=== PATIENT | male | born 1955 | race Caucasian/White ===

== ENCOUNTER 2023-08-13 18:09 | Inpatient (IN) | payer OTHER, SELFPAY ==
[2023-08-13] VITALS (26 sets, daily range): BP systolic 111–148; BP diastolic 55–80; BMI 25.3
--- NOTE | 2023-08-13 11:33 | ED.PDOC.TRB ---
ED Provider Triage
-
Patient seen by provider in Triage?: Seen in Triage
67-year-old male with past medical history of cancer presenting to the ER for nausea and vomiting that started earlier this morning associated with left upper quadrant abdominal pain. Patient states the pain radiates to the right side of his
abdomen. States presently no nausea or vomiting but still endorses pain. He is otherwise well-appearing in no acute distress. Labs initiated. Patient declining any medication for nausea.
[2023-08-13 11:56] LABS: % Basophils 0.2 % (0-2); % Eosinophils 0.3 % (0-6); % Immature Granulocytes 0.5 % (0-0.5); % Lymphocytes 4.3 % (20.5-51.1); % Monocytes 10.4 % (1.7-9.3); % Neutrophils 84.3 % (42.2-75.2); Absolute Immature Granulocytes 0.1 10^3/uL (0-0.05); Absolute Lymphocytes 0.4 10^3/uL (1.2-3.4); Absolute Neutrophils 8.2 10^3/uL (1.4-6.5); Hematocrit 39.8 % (39.0-52.0); Hemoglobin 10.8 g/dL (13.0-18.0); Mean Corp Hgb Conc. 27.1 g/dL (33.0-37.0); Mean Corpuscular Hgb 23.1 pg (27.0-31.0); Mean Platelet Volume 8.5 fL (7.4-10.4); Nucleated Red Blood Cells % 0 % (-); Platelet Count 353 10^3/uL (130-400); Red Blood Cell Count 4.68 10^6/uL (4.70-6.10); Red Cell Dist. Width 19.5 % (11.5-14.5); White Blood Cell Count 9.8 10^3/uL (4.8-10.8)
[2023-08-13 12:14] LABS: ALT (SGPT) 22 U/L (0-50); AST (SGOT) 55 U/L (17-59); Albumin 2.9 g/dl (3.5-5.0); Alkaline Phosphatase 268 U/L (38-126); Blood Urea Nitrogen 50 mg/dl (9-20); Calcium 9.8 mg/dl (8.4-10.2); Carbon Dioxide 21 mmol/L (22-30); Chloride 105 mmol/L (98-107); Glucose 162 mg/dl (70-99); Lipase 23 U/L (23-300); Potassium 5.5 mmol/L (3.5-5.1); Sodium 138 mmol/L (135-145); Total Bilirubin 0.6 mg/dl (0.2-1.3); Total Protein 6.1 g/dl (6.3-8.2); eGFR 23.98
[2023-08-13 12:55] LABS: Anisocytosis 1+; Hypochromasia 1+; Normal RBC Morphology No
--- NOTE | 2023-08-13 13:31 | ED.GENMED ---
History of Present Illness
General
Chief Complaint: Abdominal Pain
Source: patient and spouse
Exam Limitations: none
Time Seen by Provider: 08/13/23 13:02
Nursing documentation reviewed up to this point in time: agreed with
Travel History
Have you had any contact with someone who has COVID-19?: No
Do you have any symptoms of coronavirus? Fever > 100 degrees, chills, cough, shortness of breath, sore throat, loss of taste or smell, muscle aches, or headache?: No
History of Present Illness
History of Present Illness:
67-year-old male presents emergency room complaining of left upper quadrant abdominal pain radiating to right upper quadrant ongoing for the past 3 days. He has a history of this type of pain in the past, but had no diagnosis. He has a history of
renal cell carcinoma, with a right nephrectomy. He follows with Dr. De León, [employer]. His last creatinine was 1.9 done at [facility]. This was in July 2023.
Past History
Past History
ED Past Medical History: HTN, Hypercholesterolemia and NIDDM
ED Past Surgical History: Urological (Right nephrectomy at [facility])
Social History
Tobacco: Non-smoker
Alcohol: Occasional
Personal:
Living: with family
Review of Systems
Review of Systems
Allergies reviewed?: Yes
All Other Systems: Not applicable
Constitutional: Reports no symptoms
EENT: Reports no symptoms
Respiratory: Reports no symptoms
Cardiac: Reports no symptoms
ABD/GI: Reports abdominal pain
: Reports no symptoms
Musculoskeletal: Reports no symptoms
Skin: Reports no symptoms
Neurological: Reports no symptoms
Endocrine: Reports no symptoms
Hematologic/Lymphatic: Reports no symptoms
Psychiatric: Reports no symptoms
Phy Exam
Physical Exam
Physical Exam:
Physical Exam
General: no apparent distress, not acutely ill
Neck: supple. no meningeal signs. normal posterior pharynx
Heart: s1/s2 regular rate and rhythm, no murmur. equal radial
pulses.
HEENT: Pupils equal round reactive to light, EOMI
Lungs: no acute respiratory distress. clear bilaterally
Abdomen: normal bowel sounds. mild LUQ abdominal tenderness, midline abdominal scar, right lower quadrant abdominal scar. no CVAT
Neuro: alert and oriented. no focal neurological deficits cranial nerves II through XII intact
Skin: no rash
Psychiatric: well kept. interactive and cooperative
Extremities: no edema. no calf tenderness. negative homans. good distal pulses
Course
Orders/Labs/Results
Orders:
Orders
08/13/23 11:44
Complete Blood Count/With Diff Urgent
Comprehensive Metabolic Panel Urgent
Lipase Urgent
08/13/23 13:21
CT Abdomen W/o Iv Contrast Urgent
Comment:
Reason For Exam: LUQ pain, history renal cancer
08/13/23 13:41
IV Insert/Care/Rem.- Treatment PRN
08/13/23 14:21
Urinalysis Reflex To Culture Urgent
Date Specimen was Collected: 08/13/23
Time Specimen was Collected: 13:57
Urine Creatinine Urgent
Date Specimen was Collected: 08/13/23
Time Specimen was Collected: 13:57
Urine Microscopic Reflex Cult Urgent
Urine Sodium Urgent
Date Specimen was Collected: 08/13/23
Time Specimen was Collected: 13:57
08/13/23 14:34
Dextrose 50%-Water [Dextrose 50% Syringe] 25 grams IV NOW STA
Insulin Human Regular [Novolin R] 10 units IV NOW STA
08/13/23 14:35
0.9% Sodium Chloride 250 ml [Nss] 250 ml IV BOLUS
08/13/23 14:45
Sterile Water For Inj [Sterile Water For Injection 1000 ml] 1,000 ml Sodium Bicarbonate 150 meq IV 125 mls/hr
08/13/23 Dinner
Regular
08/13/23 15:10
Add On- LAB Urgent
Tests Added?: Urine Creatinine, Urine Sodium
08/13/23 17:06
Admit/Transfer Patient As Directed
Co-Sign Provider:
Level of Care: Inpatient admission
Assign to:: Telemetry
Physician / Group: Brenna
Diagnosis: TOMAS
Reason for Telemetry: Chest Pain syndromes
Date to Stop Telemetry: 08/15/23
Time to Stop Telemetry: 11:00
Reason for Hospitalization: Above
Expected length of stay greater than two midnights?: Yes
ELOS- Estimated Length of Stay in days: 2
I certify the patient meets the requirements for IP care: Yes
08/13/23 17:08
Code Status As Directed
Resuscitation Status: Full Code
08/13/23 19:45
Acetaminophen [Tylenol] 650 mg PO Q6HPRN PRN
Rosuvastatin Calcium [Crestor] 20 mg PO QPM
08/13/23 19:45
Echo 2D MMode Color/Doppler Routine
Reason for Study: chest pain, pericardial effusion on CT
NEPHROLOGY CONSULT Routine
Consulting Provider: Kervin De León
Was physician already notified: Yes
US Abdomen Complete/Upper Routine
Comment:
Reason For Exam: Abdominal pain, assess for ascites
DX Deep Vein Thrombosis Video Routine
08/13/23 20:00
Heparin 5,000 units SC Q12
08/14/23 06:00
BMP [Basic Metabolic Panel] IN AM
CBC/With Diff [Complete Blood Count/With Diff] IN AM
08/14/23 08:00
Allopurinol [Zyloprim] 200 mg PO DAILY
Aspirin Chewable [Low Strength Aspirin] 81 mg PO DAILY
Levothyroxine [Synthroid] 50 mcg PO DAILY
08/15/23 11:00
DC Protocol for Telemetry ONCE
Abnormal Lab Results
08/13/23 08/13/23
11:44 14:21
RBC 4.68 L 10^6/uL
(4.70-6.10)
Hgb 10.8 L g/dL
(13.0-18.0)
MCH 23.1 L pg
(27.0-31.0)
MCHC 27.1 L g/dL
(33.0-37.0)
RDW 19.5 H %
(11.5-14.5)
Abs Immat Gran (auto) 0.1 H 10^3/uL
(0-0.05)
Absolute Neuts (auto) 8.2 H 10^3/uL
(1.4-6.5)
Absolute Lymphs (auto) 0.4 L 10^3/uL
(1.2-3.4)
Absolute Monos (auto) 1.0 H 10^3/uL
(0.1-0.6)
Neutrophils % 84.3 H %
(42.2-75.2)
Lymphocytes % 4.3 L %
(20.5-51.1)
Monocytes % 10.4 H %
(1.7-9.3)
Potassium 5.5 H mmol/L
(3.5-5.1)
Carbon Dioxide 21 L mmol/L
(22-30)
BUN 50 H mg/dl
(9-20)
Creatinine 2.8 H mg/dL
(0.7-1.3)
Glucose 162 H mg/dl
(70-99)
Alkaline Phosphatase 268 H U/L
(38-126)
Total Protein 6.1 L g/dl
(6.3-8.2)
Albumin 2.9 L g/dl
(3.5-5.0)
Urine Ketones Trace A
(Negative)
Ur Occult Blood Reflex Trace A
(Negative)
Urine Bilirubin 1+ A
(Negative)
Urine Albumin (Reflex) 2+ A
(Neg - Trace)
08/13/23 11:44
08/13/23 11:44
Vital Signs
Initial and Last Documented VS:
Initial Vital Signs
Temp Pulse Resp BP Pulse Ox
97.8 F 106 20 119/64 98
08/13/23 11:26 08/13/23 11:26 08/13/23 11:26 08/13/23 11:26 08/13/23 11:26
Last Documented Vital Signs
Temp Pulse Resp BP Pulse Ox
97.8 F 105 22 115/60 96
08/13/23 11:26 08/13/23 16:00 08/13/23 16:00 08/13/23 16:00 08/13/23 16:00
MDM/Problems Addressed
Differential Diagnosis Includes:
kidney stone, acute renal failure, hyperkalemia, UTI
MDM/Problems Addressed:
67 yo male with acute renal failure, hyperkalemia, LUQ pain.
*Radiology
Radiology exam reviewed: radiology read reviewed (ct abd moderate pericardial effusion, no kidney stone seen)
*Pulse Oximetry
Patient hypoxic: no
*EKG
Interpreted by ED Provider?: NA
*Snow Technician Interpretation
Rate: Snow Technician- N/A
*Critical Care Note
Total Time (30-74mins, 75-104mins- exclusive of procedures): Not Applicable
Patient Management
Discussion with other providers: Hospitalist and Post Secondary Professional (neprhology Dr. De León)
ED Attending Note
-
Portions of this chart may have been created with voice recognition software.� Occasional wrong word or��sound alike� substitutions may have occurred due to the inherent limitations of voice recognition software.
Discharge Plan
Departure
Patient Disposition: Admit
Date of Disposition: 08/13/23
Time of Disposition: 15:06
Admit to: Telemetry
Presentation/result/management discussed w/ accepting MD/DO: Hospitalist
Patient with high blood pressure during this ER visit?: No
Condition: Fair
Discharge Problem:
Acute renal failure, Renal cell carcinoma
Interventions
Interventions:
*Risk Screen - Suicide Last Done: 08/13/23 19:07
*ED COVID-19 Vaccine History Last Done: 08/13/23 19:07
QG-Zeekrn-Ojzmfpmsik Assessment Last Done: 08/13/23 14:28
--- NOTE | 2023-08-13 14:10 | W.CON.NEPH ---
Consultation
-
Date/Time Consultation Requested: August 13, 2023 12 noon
Date/Time Consultation Performed: August 13, 2023 2 PM
Requesting Provider: Dr Paredes
Performing Provider: Dr. De León
Reason for Consultation: Acute kidney injury
Medical History
-
Chief Complaint: Abdominal pain
History of Present Illness:
This is a 67-year-old gentleman who is well-known to me for chronic kidney disease stage IIIb with baseline creatinine 1.8 to 2. He has hypertension on a multidrug regimen. He has solitary left kidney after right nephrectomy for renal cell cancer.
Unfortunately this was found to be metastatic to liver. He is followed at [facility] immunotherapy which was recently discontinued. Supposed to transition to a new agent. Since discontinuing his immunosuppressive therapy, his blood pressure has
been running lower lately 100 systolic range. He stopped all of his blood pressure medications. 3 days ago he began developing abdominal pain in the upper quadrants. Because of the pain he had come to emergency room for evaluation. He was found
to have acute kidney injury with a creatinine of 2.8 with mild hyperkalemia. He was not overtly hypotensive in the emergency room.
Past Medical History
Gout, hypertension, renal cell carcinoma, right nephrectomy for cancer, metastatic cancer to liver, diabetes mellitus type 2, proteinuria, hyperlipidemia, right quadriceps tear, right adrenalectomy, left shoulder surgery, rotator cuff repair, left
thumb surgery, cholecystectomy, vena caval thrombectomy
Social History
Tobacco: Non-Smoker
Alcohol: None
Family History
Family History: Not Pertinent
Allergies / Home Medications
Allergy/AdvReac Type Severity Reaction Status Date / Time
No Known Allergies Allergy Unverified 08/13/23 11:30
�Medication �Instructions �Recorded �Confirmed �Type
Glipizide 2.5 mg PO DAILY 02/17/13 02/18/17 History
aspirin 325 mg tablet 650 mg PO DAILY 02/17/13 02/18/17 History
fish oil-dha-epa 1,200 mg-144 2 ea PO DAILY 02/17/13 02/18/17 History
mg-216 mg capsule
metformin 1,000 mg tablet 1,000 mg PO BID 02/17/13 02/18/17 History
(Glucophage)
rosuvastatin 20 mg tablet 20 mg PO QPM 02/17/13 02/18/17 History
lisinopril 20 1 ea PO DAILY 02/18/17 02/18/17 History
mg-hydrochlorothiazide 25 mg tablet
Review of Systems
-
Upper quadrant abdominal pain
All other systems: Negative unless noted
Physical Exam
Vital Signs
Vital Signs
Temp Pulse Resp BP Pulse Ox
97.8 F 106 20 119/64 98
08/13/23 11:26 08/13/23 11:26 08/13/23 11:26 08/13/23 11:26 08/13/23 11:26
Lab Results
WBC 9.8 10^3/uL (4.8-10.8) 08/13/23 11:44
RBC 4.68 10^6/uL (4.70-6.10) L 08/13/23 11:44
Hgb 10.8 g/dL (13.0-18.0) L 08/13/23 11:44
Hct 39.8 % (39.0-52.0) 08/13/23 11:44
Plt Count 353 10^3/uL (130-400) 08/13/23 11:44
Sodium 138 mmol/L (135-145) 08/13/23 11:44
Potassium 5.5 mmol/L (3.5-5.1) H 08/13/23 11:44
Chloride 105 mmol/L (98-107) 08/13/23 11:44
Carbon Dioxide 21 mmol/L (22-30) L 08/13/23 11:44
BUN 50 mg/dl (9-20) H 08/13/23 11:44
Creatinine 2.8 mg/dL (0.7-1.3) H 08/13/23 11:44
eGFR 23.98 08/13/23 11:44
Glucose 162 mg/dl (70-99) H 08/13/23 11:44
Calcium 9.8 mg/dl (8.4-10.2) 08/13/23 11:44
Albumin 2.9 g/dl (3.5-5.0) L 08/13/23 11:44
Physical Exam
Patient is awake alert oriented and in no distress. Mood and affect were pleasant, insight and judgment were good. Pupils are equal round and reactive to light, extraocular movements are intact, sclera were anicteric. Hearing was normal, ears and
nose are intact. Oropharynx was clear. Neck was supple with trachea midline and no thyromegaly. Heart was regular rate and rhythm without rubs. Lower extremities without edema. Lungs were clear to auscultation bilaterally and with normal
excursion. Abdomen was soft, nontender, with normal active bowel sounds, and no hepatosplenomegaly. Skin was without rash and with normal turgor.
Data Reviewed
-
CT Scan: Image Personally Visualized and interpreted (CT scan of the abdomen pelvis on August 13, 2023 by my reading shows no hydronephrosis)
Labs: Labs Reviewed by me (On August 13, 2023 WBC 9.8, hemoglobin 10.8, platelet 353, sodium 138, potassium 5.2, carbon dioxide 21, BUN 50, creatinine 2.8, AST 55, ALT 22)
Old Records: Reviewed (Laboratory values from July 01, 2023 shows sodium 141, potassium 4.9, bicarbonate 26, creatinine 2.11, BUN 39, urine protein creatinine ratio 3.0)
Assessment/Plan
-
Assessment:
Acute kidney injury
CKD 3B, 1.8
hypertension now hypotension relative
Abdominal pain
Metastatic renal cell carcinoma to liver
Solitary left kidney after right nephrectomy
Hyperkalemia
Metabolic acidosis
Anemia
Plan:
Follow BMP
IV fluids with bicarbonate
Treat potassium medically
Holding blood pressure medications
Holding Kerendia
Holding Urocit
Outpatient workup of proteinuria was to be done
await CT reading
[2023-08-13 14:49] LABS: Urine Albumin 2+ (Neg - Trace); Urine Bilirubin 1+ (Negative); Urine Character Clear (Clear); Urine Color Yellow; Urine Glucose Negative (Negative); Urine Ketone Trace (Negative); Urine Leukocyte Negative (Negative); Urine Nitrite Negative (Negative); Urine Occult Blood Trace (Negative); Urine Urobilinogen Negative (Neg - 1+)
[2023-08-13 15:18] LABS: Urine Red Blood Cell 0-2 /HPF (0-2); Urine Squamous Cell 0-2 /LPF (Few); Urine White Cell 0-2 /HPF (0-5)
[2023-08-13] MEDS: DEXTROSE 50% SYRINGE 25 GRAMS IV ×2 (15:41→22:38)
[2023-08-13] MEDS: SODIUM BICARBONATE 1150 MEQ IV (15:48)
[2023-08-13] MEDS: NSS 250 IV (15:49)
[2023-08-13] MEDS: NOVOLIN R 10 UNITS IV (15:50)
[2023-08-13 16:24] LABS: Urine Sodium 41 mmol/L (30-90)
--- NOTE | 2023-08-13 17:11 | HPS.HSE ---
Family Physician
-
Family Physician: Santana Monteiro
Chief Complaint
-
Abdominal pain
History of Present Illness
Patient is a 67 years old male with chronic kidney disease stage IIIb with baseline creatinine 1.2-2, renal cell carcinoma with history of right nephrectomy, currently on immunotherapy including everolimus and Lenvima. Patient has known metastatic
disease to the liver. He has been followed at [facility] and awaiting for transition to new systemic regimen. Patient reports low blood pressure since discontinuation of immunotherapy and running approximately 100 systolic in the range. He reports
stopping all his blood pressure medications 3 days prior to admission. He presents to the emergency room today because of the developing of mostly left sided/left upper quadrant abdominal pain that radiates to the right side. He denies any flank
pain. He denies any shortness of breath or fever.
Further evaluation in the emergency room is relevant for abnormal creatinine 2.8 and hyperkalemia.
On my assessment he remains hemodynamically stable nontoxic-appearing with no evidence of distress.
Medical History
Past Medical History
Past Medical History: Reports Other (Renal cell carcinoma solitary kidney, known hepatic metastatic disease. Chronic kidney disease stage IIIb goutHypertension proteinuria, dyslipidemia)
Past Surgical History: Reports Other (Nephrectomy)
Social History
Tobacco: Non-smoker
Alcohol: None
Drug: None
Personal:
Living: With Family
Family History
Family History: Not pertinent
Allergies / Home Medications
Allergies reflects when Allergies were last updated in [facility].
Home Medications with original date entered in [facility]
Allergy/Medication List:
Allergies
Allergy/AdvReac Type Severity Reaction Status Date / Time
No Known Allergies Allergy Unverified 08/13/23 11:30
Home Medications
rosuvastatin 20 mg tablet 20 mg PO QPM 02/17/13
acetaminophen 325 mg tablet 650 mg PO Q6HPRN PRN mild pain 08/13/23
allopurinol 100 mg tablet 200 mg PO DAILY 08/13/23
aspirin 81 mg chewable tablet 81 mg PO DAILY 08/13/23
everolimus (antineoplastic) 5 mg tablet 5 mg PO .DAILY ON HOLD 08/13/23
hydralazine 50 mg tablet 50 mg PO .DAILY ON HOLD 08/13/23
lenvatinib 12 mg/day (4 mg x 3) capsule (Lenvima) 12 mg PO .DAILY ON HOLD 08/13/23
levothyroxine 50 mcg tablet 50 mcg PO DAILY 08/13/23
nifedipine 30 mg tablet,extended release 30 mg PO .BID ON HOLD 08/13/23
potassium citrate 10 mEq (1,080 mg) tablet,extended release 10 meq PO TID 08/13/23
sodium bicarbonate 650 mg tablet 650 mg PO TID 08/13/23
Review of Systems
-
A 12 point ROS was completed and negative except as noted: Yes
Physical Exam
Vital Signs
Vital Signs
Temp Pulse Resp BP Pulse Ox
97.8 F 105 22 115/60 96
08/13/23 11:26 08/13/23 16:00 08/13/23 16:00 08/13/23 16:00 08/13/23 16:00
Physical Exam
General: Well Developed, Well Nourished and No Apparent Distress
HEENT: NormoCephalic, Moist mucous membranes and Atraumatic
Respiratory: Clear
Cardiac: S1/S2 and Regular Rhythm; No Murmur, Rub or JVD
GI: Soft, Non Tender, Normal Bowel Sounds and Distended; No Organomegaly
Rectal: Deferred by Provider
Musculoskeletal: No Clubbing, No Cyanosis and No Edema
Skin: No Rash
Neuro: Nonfocal/grossly intact
Laboratory Results
-
08/13/23 11:44
Laboratory Results
Total Bilirubin 0.6 mg/dl (0.2-1.3) 08/13/23 11:44
AST 55 U/L (17-59) 08/13/23 11:44
ALT 22 U/L (0-50) 08/13/23 11:44
Alkaline Phosphatase 268 U/L (38-126) H 08/13/23 11:44
Lipase 23 U/L (23-300) 08/13/23 11:44
Data Reviewed
-
CT Scan: Report Reviewed by me
Lab Data: Labs Reviewed by me
Impression/Plan
-
IMPRESSION:
Presentation with bilateral mostly left-sided abdominal pain.
Acute kidney injury on CKD stage IIIb.
Hyperkalemia
Metabolic acidosis.
Pericardial effusion and ascites by imaging.
Conditions prior to admission:
Renal cell carcinoma.
Status post right nephrectomy
Hepatic metastatic disease.
Essential hypertension on multiple medications
Dyslipidemia
Type 2 diabetes by history currently not on any oral hypoglycemics or insulin.
Gout.
Hypothyroidism
PLAN:
CT scan of the abdomen without contra
Moderate pericardial effusion. Progressed
Tiny left pleural effusion. New
Findings consistent with extensive hepatic metastasis. New
Hepatosplenomegaly. There
Mild upper abdominal ascites. New
Absent right kidney with surgical clips in the right renal fossa suggesting prior nephrectomy. New
Abdominal pain on presentation.
No evidence of acute urologic pathology by CT scan.
Noticed pericardial effusion and ascites.
? If pericardial effusion creates lower chest upper abdomen pain.
Hemodynamically stable with soft BP on presentation
Will check echocardiogram to assess pericardial effusion
Check ultrasound of the abdomen to assess ascites
Acute kidney injury on CKD stage IIIb.
Creatinine 2.8
Metabolic acidosis
Again no evidence for urinary retention clinically and by imaging.
Nephrology input appreciated
With hypotension we will hold antihypertensive regimen including hydralazine and nifedipine
Continue alkalinized IV fluids
Hyperkalemia temporized in the emergency room
Follow BMP
Renal cell carcinoma
Solitary kidney status post nephrectomy.
Known hepatic metastatic disease.
Currently on immunotherapy with Lenvima and everolimus.
Check serum cortisol
Levothyroxine on replacement
Full code.
DVT prophylaxis heparin.
[2023-08-13 20:08] LABS: Blood Urea Nitrogen 52 mg/dl (9-20); Calcium 9.3 mg/dl (8.4-10.2); Carbon Dioxide 24 mmol/L (22-30); Estimated Creatinine Clearance 29 ml/min; Glucose 201 mg/dl (70-99); eGFR 22.99
[2023-08-13 20:30] LABS: Chloride 102 mmol/L (98-107); Potassium 5.5 mmol/L (3.5-5.1); Sodium 135 mmol/L (135-145)
[2023-08-13 21:18] LABS: Cortisol, Random 31.3 ug/dl
[2023-08-13 21:40] LABS: Glucose - Point of Care 211 mg/dl (70-99)
[2023-08-13] MEDS: CRESTOR PO (21:46)
[2023-08-13] MEDS: HEPARIN 5000 UNITS SC (21:46)
[2023-08-13] MEDS: NOVOLIN R 0.100000000000000006 UNITS IV (22:35)
[2023-08-13] MEDS: LOKELMA 10 GRAM PO (22:35)
[2023-08-14 03:16] VITALS: BP 115/60
[2023-08-14] MEDS: SODIUM BICARBONATE 1150 MEQ IV (03:42)
[2023-08-14] MEDS: SYNTHROID 50 MCG PO (05:42)
[2023-08-14] MEDS: TYLENOL 650 MG PO ×2 (05:44→19:37)
[2023-08-14 06:58] VITALS: BP 121/60
[2023-08-14 07:03] LABS: % Basophils 0.3 % (0-2); % Eosinophils 0.2 % (0-6); % Immature Granulocytes 1.1 % (0-0.5); % Lymphocytes 5.4 % (20.5-51.1); % Monocytes 11.5 % (1.7-9.3); % Neutrophils 81.5 % (42.2-75.2); Absolute Immature Granulocytes 0.1 10^3/uL (0-0.05); Absolute Lymphocytes 0.5 10^3/uL (1.2-3.4); Absolute Monocytes 1.1 10^3/uL (0.1-0.6); Absolute Neutrophils 7.9 10^3/uL (1.4-6.5); Hematocrit 37.9 % (39.0-52.0); Hemoglobin 10.4 g/dL (13.0-18.0); Mean Corp Hgb Conc. 27.4 g/dL (33.0-37.0); Mean Corpuscular Hgb 23.4 pg (27.0-31.0); Mean Corpuscular Volume 85.4 fL (80.0-94.0); Nucleated Red Blood Cells % 0 % (-); Platelet Count 361 10^3/uL (130-400); Red Blood Cell Count 4.44 10^6/uL (4.70-6.10); Red Cell Dist. Width 19.6 % (11.5-14.5); White Blood Cell Count 9.7 10^3/uL (4.8-10.8)
[2023-08-14 07:30] LABS: Blood Urea Nitrogen 54 mg/dl (9-20); Calcium 9.3 mg/dl (8.4-10.2); Carbon Dioxide 27 mmol/L (22-30); Chloride 100 mmol/L (98-107); Estimated Creatinine Clearance 27 ml/min; Glucose 152 mg/dl (70-99); Potassium 5.2 mmol/L (3.5-5.1); Sodium 136 mmol/L (135-145); eGFR 21.22
[2023-08-14] MEDS: LOW STRENGTH ASPIRIN 81 MG PO (08:07)
[2023-08-14] MEDS: ZYLOPRIM 200 MG PO (08:07)
[2023-08-14] MEDS: HEPARIN 5000 UNITS SC ×2 (08:07→20:55)
[2023-08-14 08:15] LABS: Hepatitis C Antibody Negative (Negative)
[2023-08-14 13:36] LABS: ALT (SGPT) 18 U/L (0-50); AST (SGOT) 53 U/L (17-59); Albumin 2.7 g/dl (3.5-5.0); Alkaline Phosphatase 254 U/L (38-126); Direct Bilirubin 0.5 mg/dl (0.0-0.4); Total Bilirubin 0.6 mg/dl (0.2-1.3); Total Protein 5.7 g/dl (6.3-8.2)
--- NOTE | 2023-08-14 14:09 | W.PN.NEPH.PH ---
Today's Communication / Plan
-
change IVF to NS
low k diet
labs in am
Assessment/Plan
-
Assessment:
Acute kidney injury
CKD 3B, 1.8
hypertension now hypotension relative
Abdominal pain
Metastatic renal cell carcinoma to liver
Solitary left kidney after right nephrectomy
Hyperkalemia
Metabolic acidosis
Anemia
Plan:
TOMAS possible prerenal, Fena 0.4
UA relatively bland, no hydro
hyperkalemia improving
mild met acisosi is better-change to NS at 80cc/hr
suspect cr reaching peak
BP stable holding blood pressure medications
Holding Kerendia
Holding Urocit
Outpatient workup of proteinuria was to be done with Dr De León
d/w pt and primary
labs in am
-
-
Date of Service: August 14, 2023
CC / HPI / ROS
-
Chief Complaint:
TOMAS with CKD
History of Present Illness:
cr up at 3.1
reports non oliguric subjectively
BP stable , k 5.2
Review of Systems:
no cp or sob
abd pain improving
no dysuria
Labs
-
Labs:
WBC 9.7 10^3/uL (4.8-10.8) 08/14/23 05:50
RBC 4.44 10^6/uL (4.70-6.10) L 08/14/23 05:50
Hgb 10.4 g/dL (13.0-18.0) L 08/14/23 05:50
Hct 37.9 % (39.0-52.0) L 08/14/23 05:50
Plt Count 361 10^3/uL (130-400) 08/14/23 05:50
Sodium 136 mmol/L (135-145) 06/07/24 05:50
Potassium 5.2 mmol/L (3.5-5.1) H 08/14/23 05:50
Chloride 100 mmol/L (98-107) 08/14/23 05:50
Carbon Dioxide 27 mmol/L (22-30) 08/14/23 05:50
BUN 54 mg/dl (9-20) H 08/14/23 05:50
Creatinine 3.1 mg/dL (0.7-1.3) H 08/14/23 05:50
eGFR 21.22 08/14/23 05:50
Glucose 152 mg/dl (70-99) H 08/14/23 05:50
Calcium 9.3 mg/dl (8.4-10.2) 08/14/23 05:50
Albumin 2.7 g/dl (3.5-5.0) L 08/14/23 05:50
Physical Exam
-
Vital Signs:
Vital Signs
Temp Pulse Resp BP Pulse Ox
98.9 F 99 18 121/60 96
08/14/23 06:58 08/14/23 06:58 08/14/23 06:58 08/14/23 06:58 08/14/23 09:28
Cardiovascular:: Regular rate and rhythm
Respiratory:: Bilateral: CTA
Lung Excursion:: Normal
Abdomen:: Nontender and Soft
Extremity Edema:: None: Bilateral: (trace)
Schofield Catheter: No
[2023-08-14] MEDS: SODIUM BICARBONATE IV (14:41)
[2023-08-14] MEDS: NSS 1000 IV (14:43)
[2023-08-14 14:55] VITALS: BP 117/62
--- NOTE | 2023-08-14 15:43 | W.PN.HOSP.TC ---
Today's Communication/Plan
-
IV fluids.
Monitor renal function.
Lower extremity Doppler
Assessment / Plan
Assessment / Plan
IMPRESSION:
Presentation with bilateral mostly left-sided abdominal pain.
Acute kidney injury on CKD stage IIIb.
Hyperkalemia
Metabolic acidosis.
Pericardial effusion and ascites by imaging.
Conditions prior to admission:
Renal cell carcinoma.
Status post right nephrectomy
Hepatic metastatic disease.
Essential hypertension on multiple medications
Dyslipidemia
Type 2 diabetes by history currently not on any oral hypoglycemics or insulin.
Gout.
Hypothyroidism
PLAN:
Presentation with bilateral left greater than right abdominal pain.
CT scan of the abdomen without contrast with moderate pericardial effusion, minimal bilateral pleural effusions, extensive hepatic metastasis and ascites.
Follow-up ultrasound of the abdomen with minimal ascites.
Echocardiogram with no significant pericardial effusion, although with elevated pulmonary pressure as well as large RV
Patient reports improved abdominal pain today.
Given elevated RV size and pulmonary hypertension will check lower extremity Doppler for possible DVT. Given abnormal renal function unable to perform CTA
Acute kidney injury
CKD stage IIIb baseline creatinine 2.8 hopefully plateaued at 3.1 today.
Improved metabolic acidosis.
Noted with marginal BP likely causing bump in creatinine. Fena 0.4
Nephrology input appreciated
Initially on IV fluids with bicarbonate currently transition to normal saline.
Hyperkalemia temporized
Follow BMP.
Need to document to actual renal function prior to discharge
Renal cell carcinoma
Solitary kidney status post nephrectomy.
Known hepatic metastatic disease.
Currently on immunotherapy with Lenvima and everolimus.
Check serum cortisol
Levothyroxine on replacement
Full code.
DVT prophylaxis heparin.
Anticipated Discharge: 24 - 48 hours
Subjective/Interval History
-
Date of Service: August 14, 2023
Objective Data
-
Labs:
Laboratory Results
08/14/23
05:50
WBC 9.7
Hgb 10.4 L
Hct 37.9 L
Plt Count 361
Sodium 136
Potassium 5.2 H
Chloride 100
Carbon Dioxide 27
BUN 54 H
Creatinine 3.1 H
Glucose 152 H
Calcium 9.3
Total Bilirubin 0.6
AST 53
ALT 18
Alkaline Phosphatase 254 H
Vital Signs:
Vital Signs
Temp Pulse Resp BP Pulse Ox
97.9 F 99 18 117/62 96
08/14/23 14:55 08/14/23 14:55 08/14/23 14:55 08/14/23 14:55 08/14/23 14:55
I&O
08/13/23 08/14/23 08/15/23
06:59 06:59 06:59
Intake Total 1500 / 1500
Balance 1500 / 1500
Physical Exam
-
General: Well Developed and No Apparent Distress
HEENT: Normocephalic, Atraumatic and Moist Mucous Membranes
Respiratory: Clear to Auscultation
Cardiac: Regular Rhythm and S1/S2; Negative Murmur, Rub or Gallop
GI: Soft, Nontender, Nondistended and Normal Bowel Sounds; Negative Organomegaly
Rectal: Deferred by Provider
Musculoskeletal: No Clubbing, No Cyanosis and No Edema
Skin: Negative Rash
Neuro: Nonfocal/Grossly Intact
--- NOTE | 2023-08-14 16:01 | CM ---
Met with pt at bedside
Lives with in a 1 story home
Independent, driving
DME - none
SNF/HH - denies past hx
Has ride at d/c
PCP -Dr Yumiko Monteiro
Pharm - [facility]
Plan - anticipate home no needs
[2023-08-14] MEDS: CRESTOR 20 MG PO (17:10)
[2023-08-14 19:28] VITALS: BP 125/66
[2023-08-14 22:55] VITALS: BP 114/61
[2023-08-15 02:36] VITALS: BP 124/66
[2023-08-15] MEDS: TYLENOL 650 MG PO ×2 (03:35→22:24)
[2023-08-15] MEDS: SYNTHROID 50 MCG PO (05:35)
[2023-08-15] MEDS: NSS 1000 IV ×3 (05:35→21:12)
[2023-08-15 07:46] VITALS: BP 115/63
[2023-08-15 08:16] LABS: Blood Urea Nitrogen 64 mg/dl (9-20); Calcium 9.2 mg/dl (8.4-10.2); Carbon Dioxide 25 mmol/L (22-30); Chloride 97 mmol/L (98-107); Estimated Creatinine Clearance 24 ml/min; Glucose 162 mg/dl (70-99); Potassium 5.1 mmol/L (3.5-5.1); Sodium 136 mmol/L (135-145); eGFR 18.35
[2023-08-15] MEDS: ZYLOPRIM 200 MG PO (09:10)
[2023-08-15] MEDS: HEPARIN 5000 UNITS SC ×2 (09:11→20:31)
[2023-08-15] MEDS: LOW STRENGTH ASPIRIN 81 MG PO (09:11)
[2023-08-15 10:59] VITALS: BP 112/56
--- NOTE | 2023-08-15 12:19 | W.PN.HOSP.TC ---
Today's Communication/Plan
-
Monitor vital signs and see plan
Creatinine worse today, 3.5
Nephrology to see today
Assessment / Plan
Assessment / Plan
IMPRESSION:
Presentation with bilateral mostly left-sided abdominal pain.
Acute kidney injury on CKD stage IIIb.
Hyperkalemia
Metabolic acidosis.
Pericardial effusion and ascites by imaging.
Conditions prior to admission:
Renal cell carcinoma.
Status post right nephrectomy
Hepatic metastatic disease.
Essential hypertension on multiple medications
Dyslipidemia
Type 2 diabetes by history currently not on any oral hypoglycemics or insulin.
Gout.
Hypothyroidism
PLAN:
Presentation with bilateral left greater than right abdominal pain.
CT scan of the abdomen without contrast with moderate pericardial effusion, minimal bilateral pleural effusions, extensive hepatic metastasis and ascites.
Follow-up ultrasound of the abdomen with minimal ascites.
Echocardiogram with no significant pericardial effusion, although with elevated pulmonary pressure as well as large RV
Patient reports improved abdominal pain but does have hernia
Given elevated RV size and pulmonary hypertension will check lower extremity Doppler for possible DVT. Given abnormal renal function unable to perform CTA
venous doppler neg for DVT
Acute kidney injury
CKD stage IIIb baseline creatinine; Cr worse, 3.5 today
Improved metabolic acidosis.
Noted with marginal BP likely causing bump in creatinine. Fena 0.4
Nephrology input appreciated
Initially on IV fluids with bicarbonate currently transition to normal saline.
Hyperkalemia temporized
Follow BMP.
Need to document to actual renal function prior to discharge
Renal cell carcinoma
Solitary kidney status post nephrectomy.
Known hepatic metastatic disease.
Currently on immunotherapy with Lenvima and everolimus.
serum cortisol 31.3
Levothyroxine on replacement
Full code.
DVT prophylaxis heparin.
General: Well Developed and No Apparent Distress
HEENT: Normocephalic, Atraumatic and Moist Mucous Membranes
Respiratory: Clear to Auscultation
Cardiac: Regular Rhythm and S1/S2; Negative Murmur, Rub or Gallop
GI: Soft, Nontender, Nondistended and Normal Bowel Sounds; Negative Organomegaly
Rectal: Deferred by Provider
Musculoskeletal: No Clubbing, No Cyanosis and No Edema
Skin: Negative Rash
Neuro: Nonfocal/Grossly Intact
Anticipated Discharge: 24 - 48 hours
Subjective/Interval History
-
Date of Service: August 15, 2023
denies nausea
Objective Data
-
Labs:
Laboratory Results
08/15/23
05:58
Sodium 136
Potassium 5.1
Chloride 97 L
Carbon Dioxide 25
BUN 64 H
Creatinine 3.5 H
Glucose 162 H
Calcium 9.2
Vital Signs:
Vital Signs
Temp Pulse Resp BP Pulse Ox
97.9 F 99 16 112/56 99
08/15/23 10:59 08/15/23 10:59 08/15/23 10:59 08/15/23 10:59 08/15/23 10:59
I&O
08/14/23 08/15/23 08/16/23
06:59 06:59 06:59
Intake Total 1500 / 1500 1859
Balance 1500 / 1500 1859
--- NOTE | 2023-08-15 14:12 | W.PN.NEPH.PH ---
Today's Communication / Plan
-
see plan
Assessment/Plan
-
Assessment:
Acute kidney injury
CKD 3B, 1.8
hypertension now hypotension relative
Abdominal pain
Metastatic renal cell carcinoma to liver
Solitary left kidney after right nephrectomy
Hyperkalemia
Metabolic acidosis
Anemia
Plan:
TOMAS possible prerenal, Fena 0.4
UA relatively bland, no hydro
hyperkalemia resolved
cr cont to peak but subjectively non oliguric
no clear etiology of the ongoing rise of cr
recheck Fena today, follow bladder scan and measure UOP
lower IVF rate since mild LE edema
BP stable holding blood pressure medications
Holding Kerendia
Holding Urocit
Outpatient workup of proteinuria was to be done with Dr De León
d/w pt and nursing
labs in am
-
-
Date of Service: August 15, 2023
CC / HPI / ROS
-
Chief Complaint:
TOMAS with CKD
History of Present Illness:
cr up at 3.5
reports non oliguric subjectively
BP stable , k 5
Review of Systems:
no cp or sob
no abd pain
no dysuria
Labs
-
Labs:
WBC 9.7 10^3/uL (4.8-10.8) 08/14/23 05:50
RBC 4.44 10^6/uL (4.70-6.10) L 08/14/23 05:50
Hgb 10.4 g/dL (13.0-18.0) L 08/14/23 05:50
Hct 37.9 % (39.0-52.0) L 08/14/23 05:50
Plt Count 361 10^3/uL (130-400) 08/14/23 05:50
Sodium 136 mmol/L (135-145) 08/15/23 05:58
Potassium 5.1 mmol/L (3.5-5.1) 08/15/23 05:58
Chloride 97 mmol/L (98-107) L 08/15/23 05:58
Carbon Dioxide 25 mmol/L (22-30) 08/15/23 05:58
BUN 64 mg/dl (9-20) H 08/15/23 05:58
Creatinine 3.5 mg/dL (0.7-1.3) H 08/15/23 05:58
eGFR 18.35 08/15/23 05:58
Glucose 162 mg/dl (70-99) H 08/15/23 05:58
Calcium 9.2 mg/dl (8.4-10.2) 08/15/23 05:58
Albumin 2.7 g/dl (3.5-5.0) L 08/14/23 05:50
Physical Exam
-
Vital Signs:
Vital Signs
Temp Pulse Resp BP Pulse Ox
97.9 F 99 16 112/56 99
08/15/23 10:59 08/15/23 10:59 08/15/23 10:59 08/15/23 10:59 08/15/23 10:59
Cardiovascular:: Regular rate and rhythm
Respiratory:: Bilateral: CTA
Lung Excursion:: Normal
Abdomen:: Nontender and Soft
Extremity Edema:: +1: Bilateral: (trace)
Schofield Catheter: No
[2023-08-15 15:04] VITALS: BP 115/57
[2023-08-15] MEDS: CRESTOR 20 MG PO (16:41)
[2023-08-15 16:48] LABS: Urine Sodium 23 mmol/L (30-90)
[2023-08-15 16:58] LABS: Protein/creatinine Ratio 1.8; Urine Protein 356 mg/dl
[2023-08-15 23:00] VITALS: BP 113/58
[2023-08-16] MEDS: SYNTHROID 50 MCG PO (06:22)
[2023-08-16 07:00] VITALS: BP 119/58
[2023-08-16] MEDS: ZYLOPRIM 200 MG PO (07:26)
[2023-08-16] MEDS: HEPARIN 5000 UNITS SC ×2 (07:26→20:44)
[2023-08-16] MEDS: LOW STRENGTH ASPIRIN 81 MG PO (07:26)
[2023-08-16 07:52] LABS: Blood Urea Nitrogen 71 mg/dl (9-20); Calcium 8.9 mg/dl (8.4-10.2); Carbon Dioxide 27 mmol/L (22-30); Chloride 98 mmol/L (98-107); Estimated Creatinine Clearance 24 ml/min; Glucose 163 mg/dl (70-99); Potassium 5.2 mmol/L (3.5-5.1); Sodium 134 mmol/L (135-145); eGFR 18.35
[2023-08-16] MEDS: LOKELMA 10 GRAM PO (09:07)
[2023-08-16 09:19] VITALS: BMI 26.6
--- NOTE | 2023-08-16 11:46 | W.PN.HOSP.TC ---
Today's Communication/Plan
-
Monitor vitals
See plan
Monitor creatinine
Give Lokelma
Nephrology following
Assessment / Plan
Assessment / Plan
IMPRESSION:
Presentation with bilateral mostly left-sided abdominal pain.
Acute kidney injury on CKD stage IIIb.
Hyperkalemia
Metabolic acidosis.
Pericardial effusion and ascites by imaging.
Hyponatremia
Conditions prior to admission:
Renal cell carcinoma.
Status post right nephrectomy
Hepatic metastatic disease.
Essential hypertension on multiple medications
Dyslipidemia
Type 2 diabetes by history currently not on any oral hypoglycemics or insulin.
Gout.
Hypothyroidism
PLAN:
Presentation with bilateral left greater than right abdominal pain.
CT scan of the abdomen without contrast with moderate pericardial effusion, minimal bilateral pleural effusions, extensive hepatic metastasis and ascites.
Follow-up ultrasound of the abdomen with minimal ascites.
Echocardiogram with no significant pericardial effusion, although with elevated pulmonary pressure as well as large RV
Patient reports improved abdominal pain but does have hernia
Given elevated RV size and pulmonary hypertension will check lower extremity Doppler for possible DVT. Given abnormal renal function unable to perform CTA
venous doppler neg for DVT
Acute kidney injury
CKD stage IIIb baseline creatinine; Cr worse, 3.5 today
Potassium mildly high, give Lokelma
Improved metabolic acidosis.
Noted with marginal BP likely causing bump in creatinine. Fena 0.4
Nephrology input appreciated
Initially on IV fluids with bicarbonate currently transition to normal saline.
Hyperkalemia temporized
Follow BMP.
Need to document to actual renal function prior to discharge
Renal cell carcinoma
Solitary kidney status post nephrectomy.
Known hepatic metastatic disease.
Currently on immunotherapy with Lenvima and everolimus.
serum cortisol 31.3
Levothyroxine on replacement
Full code.
DVT prophylaxis heparin.
General: Well Developed and No Apparent Distress
HEENT: Normocephalic, Atraumatic and Moist Mucous Membranes
Respiratory: Clear to Auscultation
Cardiac: Regular Rhythm and S1/S2; Negative Murmur, Rub or Gallop
GI: Soft, Nontender, Nondistended and Normal Bowel Sounds
Musculoskeletal: + LE edema
Neuro: Nonfocal/Grossly Intact
Anticipated Discharge: 24 - 48 hours
Subjective/Interval History
-
Date of Service: August 16, 2023
denies pain
Objective Data
-
Labs:
Laboratory Results
08/16/23
06:19
Sodium 134 L
Potassium 5.2 H
Chloride 98
Carbon Dioxide 27
BUN 71 H
Creatinine 3.5 H
Glucose 163 H
Calcium 8.9
Vital Signs:
Vital Signs
Temp Pulse Resp BP Pulse Ox
97.4 F 101 18 119/58 98
08/16/23 07:00 08/16/23 07:00 08/16/23 07:00 08/16/23 07:00 08/16/23 07:46
I&O
08/15/23 08/16/23 08/17/23
06:59 06:59 06:59
Intake Total 1859 / 0 2400 / 2400
Output Total 670 / 670
Balance 1859 / 0 1730 / 1730
[2023-08-16] MEDS: NSS 1000 IV (13:34)
[2023-08-16 15:00] VITALS: BP 114/59
[2023-08-16] MEDS: CRESTOR 20 MG PO (17:04)
--- NOTE | 2023-08-16 17:29 | W.PN.NEPH.PH ---
Today's Communication / Plan
-
cotn IVF
follow labs
Assessment/Plan
-
Assessment:
Acute kidney injury
CKD 3B, 1.8
hypertension now hypotension relative
Abdominal pain
Metastatic renal cell carcinoma to liver
Solitary left kidney after right nephrectomy
Hyperkalemia
Metabolic acidosis
Anemia
Plan:
TOAMS possible prerenal, Fena still low
UA relatively bland, no hydro
hyperkalemia -low k diet
cr likely reached peak and non oliguric
follow bladder scan and measure UOP
cont IVF today and likely d/c in am if cr stable,
wt increasing but stable resp status
BP stable holding blood pressure medications
Holding Kerendia
Holding Urocit
Outpatient workup of proteinuria was to be done with Dr De León U CPR 1.8gm/gmof cr
d/w pt and
labs in am
He had Derm appointment on Thursday and he wants not to miss the appointment
-
-
Date of Service: August 16, 2023
CC / HPI / ROS
-
Chief Complaint:
TOMAS with CKD
History of Present Illness:
cr no change at 3.5
reports non oliguric subjectively
BP stable , k 5.2, na 134
Review of Systems:
no cp or sob
no abd pain
no dysuria
Labs
-
Labs:
WBC 9.7 10^3/uL (4.8-10.8) 08/14/23 05:50
RBC 4.44 10^6/uL (4.70-6.10) L 08/14/23 05:50
Hgb 10.4 g/dL (13.0-18.0) L 08/14/23 05:50
Hct 37.9 % (39.0-52.0) L 08/14/23 05:50
Plt Count 361 10^3/uL (130-400) 08/14/23 05:50
Sodium 134 mmol/L (135-145) L 08/16/23 06:19
Potassium 5.2 mmol/L (3.5-5.1) H 08/16/23 06:19
Chloride 98 mmol/L (98-107) 08/16/23 06:19
Carbon Dioxide 27 mmol/L (22-30) 08/16/23 06:19
BUN 71 mg/dl (9-20) H 08/16/23 06:19
Creatinine 3.5 mg/dL (0.7-1.3) H 08/16/23 06:19
eGFR 18.35 08/16/23 06:19
Glucose 163 mg/dl (70-99) H 08/16/23 06:19
Calcium 8.9 mg/dl (8.4-10.2) 08/16/23 06:19
Albumin 2.7 g/dl (3.5-5.0) L 08/14/23 05:50
Physical Exam
-
Vital Signs:
Vital Signs
Temp Pulse Resp BP Pulse Ox
97.7 F 98 18 114/59 96
08/16/23 15:00 08/16/23 15:00 08/16/23 15:00 08/16/23 15:00 08/16/23 15:00
Cardiovascular:: Regular rate and rhythm
Respiratory:: Bilateral: CTA
Lung Excursion:: Normal
Abdomen:: Nontender and Soft
Extremity Edema:: +1: Bilateral:
Schofield Catheter: No
[2023-08-16 23:00] VITALS: BP 113/58
[2023-08-16] MEDS: TYLENOL 650 MG PO (23:36)
[2023-08-17] MEDS: SYNTHROID 50 MCG PO (05:58)
[2023-08-17 06:00] VITALS: BMI 26.9
[2023-08-17] MEDS: NSS 1000 IV (06:00)
[2023-08-17 07:30] LABS: Blood Urea Nitrogen 74 mg/dl (9-20); Calcium 8.9 mg/dl (8.4-10.2); Carbon Dioxide 22 mmol/L (22-30); Chloride 99 mmol/L (98-107); Estimated Creatinine Clearance 25 ml/min; Glucose 188 mg/dl (70-99); Potassium 4.3 mmol/L (3.5-5.1); Sodium 132 mmol/L (135-145)
[2023-08-17 07:53] VITALS: BP 118/61
[2023-08-17] MEDS: HEPARIN 5000 UNITS SC ×2 (08:53→20:02)
[2023-08-17] MEDS: LOW STRENGTH ASPIRIN 81 MG PO (08:53)
[2023-08-17] MEDS: ZYLOPRIM 200 MG PO (08:53)
--- NOTE | 2023-08-17 09:11 | W.PN.HOSP.TC ---
Addendum entered and electronically signed by Mac Ceja MD 08/17/23 15:16:
Patient seen and examined
Discussed with resident
Discussed with nephrology
Impression/plan
Presentation with bilateral mostly upper quadrant abdominal pain resolved.
Acute kidney injury on CKD stage IIIb.
Solitary kidney.
Renal cell carcinoma currently on immunotherapy.
Abdominal pain resolved.
Additional workup with CT scan of the abdomen with no obstructive uropathy
Echocardiogram with preserved biventricular function and no pericardial effusion.
Lower extremity Doppler negative for DVT.
Minimal ascites on imaging.
Creatinine plateau
Observe off IV fluids.
Physical therapy assessment.
Original Note:
Today's Communication/Plan
-
- Will hold fluids and see how his renal function responds overnight.
- PT/OT eval in anticipation of a possible discharge tomorrow.
Assessment / Plan
Assessment / Plan
IMPRESSION:
Presentation with bilateral mostly left-sided abdominal pain.
Acute kidney injury on CKD stage IIIb.
Hyperkalemia
Metabolic acidosis.
Pericardial effusion and ascites by imaging.
Hyponatremia
Conditions prior to admission:
Renal cell carcinoma.
Status post right nephrectomy
Hepatic metastatic disease.
Essential hypertension on multiple medications
Dyslipidemia
Type 2 diabetes by history currently not on any oral hypoglycemics or insulin.
Gout.
Hypothyroidism
PLAN:
Presentation with bilateral left greater than right abdominal pain.
CT scan of the abdomen without contrast with moderate pericardial effusion, minimal bilateral pleural effusions, extensive hepatic metastasis and ascites.
Follow-up ultrasound of the abdomen with minimal ascites.
Echocardiogram with no significant pericardial effusion, although with elevated pulmonary pressure as well as large RV
Patient reports improved abdominal pain but does have hernia
Given elevated RV size and pulmonary hypertension will check lower extremity Doppler for possible DVT. Given abnormal renal function unable to perform CTA
venous doppler neg for DVT
Hold IV fluids today and monitor renal function.
Acute kidney injury
CKD stage IIIb baseline creatinine; Cr worse, 3.5 today
Potassium mildly high, give Lokelma
Improved metabolic acidosis.
Noted with marginal BP likely causing bump in creatinine. Fena 0.4
Nephrology input appreciated
Initially on IV fluids with bicarbonate currently transition to normal saline.
Hyperkalemia temporized
Follow BMP.
Need to document to actual renal function prior to discharge
Renal cell carcinoma
Solitary kidney status post nephrectomy.
Known hepatic metastatic disease.
Currently on immunotherapy with Lenvima and everolimus.
serum cortisol 31.3
Levothyroxine on replacement
Full code.
DVT prophylaxis heparin.
Anticipated Discharge: Today
Subjective/Interval History
-
Date of Service: August 17, 2023
Objective Data
-
Labs:
Laboratory Results
08/17/23
05:52
Sodium 132 L
Potassium 4.3
Chloride 99
Carbon Dioxide 22
BUN 74 H
Creatinine 3.4 H
Glucose 188 H
Calcium 8.9
Vital Signs:
Vital Signs
Temp Pulse Resp BP Pulse Ox
97.8 F 100 18 118/61 99
08/17/23 07:53 08/17/23 07:53 08/17/23 07:53 08/17/23 07:53 08/17/23 07:53
I&O
08/16/23 08/17/23 08/18/23
06:59 06:59 06:59
Intake Total 2400 / 2400 1320 / 1320
Output Total 670 / 670 360 / 360
Balance 1730 / 1730 960 / 960
Review of Systems
-
History Source: Patient
Constitutional: Reports Weight Gain
EENT: Reports No Symptoms Reported
Respiratory: Reports No Symptoms
Cardiac: Reports No Symptoms
Breast: Reports No Symptoms
Genitourinary: Reports No Symptoms
Musculoskeletal: Reports No Symptoms
Skin: Reports No Symptoms
Neuro: Reports No Symptoms
Endocrine: Reports No Symptoms
Hematologic / Lymphatic: Reports No Symptoms
Allergy / Immunology: Reports No Symptoms
Physical Exam
-
General: No Apparent Distress and Comfortable
HEENT: Normocephalic, Atraumatic, Moist Mucous Membranes and Anicteric
Respiratory: Clear to Auscultation and Non Labored Respirations
Cardiac: Regular Rhythm and S1/S2
GI: Soft, Nontender, Nondistended and Normal Bowel Sounds; Negative Organomegaly
Rectal: Deferred by Provider
Musculoskeletal: No Clubbing, No Cyanosis and No Edema
Skin: Warm, Dry and IV Access / Catheter Site
Neuro: Awake, Alert, Oriented and Nonfocal/Grossly Intact
Psych: Calm
--- NOTE | 2023-08-17 13:05 | W.PN.NEPH.PH ---
Today's Communication / Plan
-
No more IV fluids
Follow BMP
Assessment/Plan
-
Assessment:
Acute kidney injury
CKD 3B, 1.8
hypertension now hypotension relative
Abdominal pain
Metastatic renal cell carcinoma to liver
Solitary left kidney after right nephrectomy
Hyperkalemia
Metabolic acidosis
Anemia
Plan:
TOMAS possible prerenal, Fena still low
Hyponatremia worsening
UA relatively bland, no hydro
hyperkalemia -low k diet
Hopefully cr likely reached peak and non oliguric , creatinine 3.4 today
Urine output records only 340 mL
follow bladder scan and measure UOP
Will hold off further IV fluid as weights have significantly increased
Hemodynamically stable but still holding antihypertensives
Holding Kerendia due to hyperkalemia
Holding Urocit
Outpatient workup of proteinuria was to be done with Dr Genet Horner CPR 1.8gm/gmof cr
d/w pt
labs in am
He had Derm appointment on and he wants not to miss the appointment
-
-
Date of Service: August 17, 2023
CC / HPI / ROS
-
Chief Complaint:
TOMAS with CKD
History of Present Illness:
cr improved to 3.4
reports non oliguric subjectively
Hemodynamically more stable
Review of Systems:
no cp or sob
no abd pain
no dysuria
Labs
-
Labs:
WBC 9.7 10^3/uL (4.8-10.8) 08/14/23 05:50
RBC 4.44 10^6/uL (4.70-6.10) L 08/14/23 05:50
Hgb 10.4 g/dL (13.0-18.0) L 08/14/23 05:50
Hct 37.9 % (39.0-52.0) L 08/14/23 05:50
Plt Count 361 10^3/uL (130-400) 08/14/23 05:50
Sodium 132 mmol/L (135-145) L 08/17/23 05:52
Potassium 4.3 mmol/L (3.5-5.1) 08/17/23 05:52
Chloride 99 mmol/L (98-107) 08/17/23 05:52
Carbon Dioxide 22 mmol/L (22-30) 08/17/23 05:52
BUN 74 mg/dl (9-20) H 08/17/23 05:52
Creatinine 3.4 mg/dL (0.7-1.3) H 08/17/23 05:52
eGFR 19.00 08/17/23 05:52
Glucose 188 mg/dl (70-99) H 08/17/23 05:52
Calcium 8.9 mg/dl (8.4-10.2) 08/17/23 05:52
Albumin 2.7 g/dl (3.5-5.0) L 08/14/23 05:50
Physical Exam
-
Vital Signs:
Vital Signs
Temp Pulse Resp BP Pulse Ox
97.8 F 100 18 118/61 99
08/17/23 07:53 08/17/23 07:53 08/17/23 07:53 08/17/23 07:53 08/17/23 07:53
Cardiovascular:: Regular rate and rhythm
Respiratory:: Bilateral: Coarse
Lung Excursion:: Normal
Abdomen:: Nontender and Soft
Bowel Sounds:: Normal
Extremity Edema:: None: Bilateral:
Schofield Catheter: No
[2023-08-17 16:04] VITALS: BP 112/59
--- NOTE | 2023-08-17 16:17 | CM ---
Case management following for d/c planning
Chart reviewed
Pt with renal cell carcinoma
TOMAS - neph following
monitoring renal function
PT eval pending
Plan - anticipate home no needs
[2023-08-17] MEDS: CRESTOR 20 MG PO (17:10)
[2023-08-17] MEDS: TYLENOL 650 MG PO (22:36)
[2023-08-17 23:12] VITALS: BP 119/60
[2023-08-18] MEDS: SYNTHROID 50 MCG PO (05:51)
[2023-08-18 06:00] VITALS: BMI 27.2
[2023-08-18 06:46] LABS: Blood Urea Nitrogen 77 mg/dl (9-20); Calcium 8.6 mg/dl (8.4-10.2); Carbon Dioxide 22 mmol/L (22-30); Chloride 99 mmol/L (98-107); Estimated Creatinine Clearance 25 ml/min; Glucose 240 mg/dl (70-99); Potassium 3.9 mmol/L (3.5-5.1); Sodium 133 mmol/L (135-145); eGFR 19.69
[2023-08-18 07:44] VITALS: BP 105/55
[2023-08-18] MEDS: HEPARIN 5000 UNITS SC (08:43)
[2023-08-18] MEDS: ZYLOPRIM 200 MG PO (08:43)
[2023-08-18] MEDS: LOW STRENGTH ASPIRIN 81 MG PO (08:43)
[2023-08-18 09:23] VITALS: BP 108/51; PULSE 98
[2023-08-18 09:26] VITALS: BP 108/51; PULSE 98
--- NOTE | 2023-08-18 09:31 | PTOTSP ---
Pt is independent with functional mobility without need for any assistive device. No acute PT needs were identified. Will sign off.
--- NOTE | 2023-08-18 10:57 | W.PN.HOSP.TC ---
Addendum entered and electronically signed by Mac Ceja MD 08/18/23 16:19:
Patient seen and examined
Discussed with resident
Discussed with nephrology
Impression/plan:
Presentation with bilateral mostly left-sided abdominal pain resolved.
Acute kidney injury on CKD stage IIIb. Chronic metabolic acidosis. Renal function stabilized and plateau with now creatinine trending down off IV fluids. No evidence for obstructive process. This was most likely combination of relative
hypotension and recent immunotherapy. Plan is to discharge patient with nephrology follow-up. Will hold antihypertensives given soft BP. Continue oral bicarbonate.
Patient will follow-up with primary oncologist at [facility] for further options of renal carcinoma treatment
Original Note:
Today's Communication/Plan
-
- Anticipated discharge today.
Assessment / Plan
Assessment / Plan
IMPRESSION:
Presentation with bilateral mostly left-sided abdominal pain.
Acute kidney injury on CKD stage IIIb.
Hyperkalemia
Metabolic acidosis.
Pericardial effusion and ascites by imaging.
Hyponatremia
Conditions prior to admission:
Renal cell carcinoma.
Status post right nephrectomy
Hepatic metastatic disease.
Essential hypertension on multiple medications
Dyslipidemia
Type 2 diabetes by history currently not on any oral hypoglycemics or insulin.
Gout.
Hypothyroidism
PLAN:
Presentation with bilateral left greater than right abdominal pain.
CT scan of the abdomen without contrast with moderate pericardial effusion, minimal bilateral pleural effusions, extensive hepatic metastasis and ascites.
Follow-up ultrasound of the abdomen with minimal ascites.
Echocardiogram with no significant pericardial effusion, although with elevated pulmonary pressure as well as large RV
Patient reports improved abdominal pain but does have hernia
Given elevated RV size and pulmonary hypertension will check lower extremity Doppler for possible DVT. Given abnormal renal function unable to perform CTA
venous doppler neg for DVT
Renal function stable off IV fluids
Acute kidney injury
CKD stage IIIb baseline creatinine; Cr worse, 3.5 today
Potassium mildly high, give Lokelma
Improved metabolic acidosis.
Noted with marginal BP likely causing bump in creatinine. Fena 0.4
Nephrology input appreciated
Initially on IV fluids with bicarbonate currently transition to normal saline.
Hyperkalemia temporized
Follow BMP.
Cr stable off IV fluids.
Renal cell carcinoma
Solitary kidney status post nephrectomy.
Known hepatic metastatic disease.
Currently on immunotherapy with Lenvima and everolimus.
serum cortisol 31.3
Levothyroxine on replacement
Full code.
DVT prophylaxis heparin.
Anticipated Discharge: Today
Subjective/Interval History
-
Date of Service: August 18, 2023
Objective Data
-
Labs:
Laboratory Results
08/18/23
05:43
Sodium 133 L
Potassium 3.9
Chloride 99
Carbon Dioxide 22
BUN 77 H
Creatinine 3.3 H
Glucose 240 H
Calcium 8.6
Vital Signs:
Vital Signs
Temp Pulse Resp BP Pulse Ox
97 F 96 17 105/55 98
08/18/23 07:44 08/18/23 07:44 08/18/23 07:44 08/18/23 07:44 08/18/23 07:44
I&O
08/17/23 08/18/23 08/19/23
06:59 06:59 06:59
Intake Total 1320 / 1320 1320 / 1320
Output Total 360 / 360
Balance 960 / 960 1320 / 1320
Review of Systems
-
History Source: Patient
Constitutional: Reports Weight Gain
EENT: Reports No Symptoms Reported
Respiratory: Reports No Symptoms
Cardiac: Reports No Symptoms
Breast: Reports No Symptoms
Genitourinary: Reports No Symptoms
Musculoskeletal: Reports No Symptoms
Skin: Reports No Symptoms
Neuro: Reports No Symptoms
Endocrine: Reports No Symptoms
Hematologic / Lymphatic: Reports No Symptoms
Allergy / Immunology: Reports No Symptoms
Physical Exam
-
General: No Apparent Distress and Comfortable
HEENT: Normocephalic, Atraumatic, Moist Mucous Membranes and Anicteric
Respiratory: Clear to Auscultation and Non Labored Respirations
Cardiac: Regular Rhythm and S1/S2
GI: Soft, Nontender, Nondistended and Normal Bowel Sounds; Negative Organomegaly
Rectal: Deferred by Provider
Musculoskeletal: No Clubbing, No Cyanosis and No Edema
Skin: Warm, Dry and IV Access / Catheter Site
Neuro: Awake, Alert, Oriented and Nonfocal/Grossly Intact
Psych: Calm
[2023-08-18 11:29] VITALS: BP 105/56
--- NOTE | 2023-08-18 11:37 | W.PN.NEPH.PH ---
Today's Communication / Plan
-
Stable for discharge
Obtain BMP and send to Dr. De León this Thursday
Assessment/Plan
-
Assessment:
Acute kidney injury
CKD 3B, 1.8
hypertension now hypotension relative
Abdominal pain
Metastatic renal cell carcinoma to liver
Solitary left kidney after right nephrectomy
Hyperkalemia
Metabolic acidosis
Anemia
Plan:
Stable for discharge today
Follow-up BMP to be sent to Dr. De León later this week
TOMAS possible prerenal, Fena still low
creatinine slowly improving to 3.3, uop not recorded
Hyponatremia improved to 133
UA relatively bland, no hydro
hyperkalemia -low k diet, controlled
follow bladder scan and measure UOP
holding off further IV fluid as weights have significantly increased
Hemodynamically soft still holding antihypertensives
Holding Kerendia due to hyperkalemia
Holding Urocit
Outpatient workup of proteinuria was to be done with Dr De León U CPR 1.8gm/gmof cr
d/w pt
labs in am
He had Derm appointment on and he wants not to miss the appointment
-
-
Date of Service: August 18, 2023
CC / HPI / ROS
-
Chief Complaint:
TOMAS with CKD
History of Present Illness:
cr improved to 3.3
reports non oliguric subjectively
Hemodynamically more stable but still soft
Review of Systems:
no cp or sob
no abd pain
no dysuria
Labs
-
Labs:
WBC 9.7 10^3/uL (4.8-10.8) 08/14/23 05:50
RBC 4.44 10^6/uL (4.70-6.10) L 08/14/23 05:50
Hgb 10.4 g/dL (13.0-18.0) L 08/14/23 05:50
Hct 37.9 % (39.0-52.0) L 08/14/23 05:50
Plt Count 361 10^3/uL (130-400) 08/14/23 05:50
Sodium 133 mmol/L (135-145) L 08/18/23 05:43
Potassium 3.9 mmol/L (3.5-5.1) 08/18/23 05:43
Chloride 99 mmol/L (98-107) 08/18/23 05:43
Carbon Dioxide 22 mmol/L (22-30) 08/18/23 05:43
BUN 77 mg/dl (9-20) H 08/18/23 05:43
Creatinine 3.3 mg/dL (0.7-1.3) H 08/18/23 05:43
eGFR 19.69 08/18/23 05:43
Glucose 240 mg/dl (70-99) H 08/18/23 05:43
Calcium 8.6 mg/dl (8.4-10.2) 08/18/23 05:43
Albumin 2.7 g/dl (3.5-5.0) L 08/14/23 05:50
Physical Exam
-
Vital Signs:
Vital Signs
Temp Pulse Resp BP Pulse Ox
97 F 97 17 105/56 97
08/18/23 11:29 08/18/23 11:29 08/18/23 11:29 08/18/23 11:29 08/18/23 11:29
Cardiovascular:: Regular rate and rhythm
Respiratory:: Bilateral: CTA
Lung Excursion:: Normal
Abdomen:: Nontender and Soft
Bowel Sounds:: Normal
Extremity Edema:: +1: Bilateral:
Schofield Catheter: No
--- NOTE | 2023-08-18 12:48 | CM ---
Case management following for d/c planning
Pt reports home today
Has ride home
Plan - anticipate home no needs
--- NOTE | 2023-08-18 13:25 | W.DCSUMMARY ---
Documented by User: Simon Vinson MD, Resident 08/18/23 14:33
Discharge Summary
Discharge Data
Date of Admission: 08/13/23
Date of Discharge: 08/18/23
-
Pending Results: No
Hospital Course
Primary discharge diagnosis
- Metastatic renal cell carcinoma
Secondary discharge diagnoses
- Acute kidney injury on chronic kidney disease, stage IIIb
- Status post right nephrectomy
- Hyperkalemia
- Metabolic acidosis
- Pericardial effusion
- Ascites
- Dyslipidemia
- Essential hypertension
- Hypothyroidism
- Gout
Hospital course
Lucho Diaz, age 67, came to the emergency on 08-13-23 with left-sided upper abdominal pain radiating to the right. CT abdomen showed known extensive hepatic metastasis, hepatosplenomegaly mild pleural effusion and moderate pericardial effusion.
His presentation was notable for hyperkalemia and elevated creatinine levels, 2.8 on day 1; peaked and plateaued at 3.5. He was started on bicarbonate IV, subsequently transitioned to normal saline. Other work-up including an echocardiogram and BL
LE US were otherwise unremarkable. He remained hemodynamically stable throughout his hospital course, and his symptoms subsided. Creatinine remained stable and continued to down-trend off IV fluids.
His blood pressures have been low-normal since he came to the emergency, and have been so for the past few weeks. His blood pressure medications, which were stopped 3 days prior to his arrival to the emergency, were held during discharge - follow-up
with primary and nephrology in 1 week to re-evaluate. BMP in a week prior to the nephrology appointment. He has an outpatient appointment with Nico Lindquist to consider other antineoplastic options. Recommended to follow-up with primary regarding
up-trending glucose through the hospital stay. At the time of his discharge, his vitals were within normal limits (blood pressure low-normal) and he was feeling good. Review of systems and physical examination were unremarkable.
Discharge Plan
-
Patient Disposition: Home (Routine Discharge)
Discharge Diagnosis/Procedures: Metastatic renal cell carcinoma
Condition: Good
Diet: As tolerated
Activity: As tolerated
Driving Restrictions: As prior to admission
Blood Work: BMP and HbA1c in 1 week
Referrals:
Kervin De León MD [Active] -
Santana Monteiro MD [Family Provider] -
Prescriptions:
Continued
rosuvastatin 20 MG tablet
20 mg PO QPM
acetaminophen 325 mg Tablet
650 mg PO Q6HPRN PRN (Reason: mild pain)
allopurinol 100 mg Tablet
200 mg PO DAILY
sodium bicarbonate 650 mg Tablet
650 mg PO TID
levothyroxine 50 mcg Tablet
50 mcg PO DAILY
aspirin 81 mg Tablet,Chewable
81 mg PO DAILY
everolimus (antineoplastic) 5 mg Tablet
5 mg PO .DAILY ON HOLD
Lenvima 12 mg/day (4 mg x 3) Capsule
12 mg PO .DAILY ON HOLD
potassium citrate 10 mEq (1,080 mg) Tablet Extended Release
10 meq PO TID
Held
nifedipine 30 mg Tablet Extended Release
30 mg PO .BID ON HOLD
Hold Instructions: Until after follow-up with PCP and nephrology.
hydralazine 50 mg Tablet
50 mg PO .DAILY ON HOLD
Hold Instructions: Until after follow-up with PCP and nephrology.
Discharge Orders:
Discharge Patient (As Directed); Ordered 08/18/23
Ordered By: Simon Vinson
Discharge Date and Time
Discharge Date/Time: 08/18/23 15:12
Print Language: PAKISTANI

Documented by User: Mac Ceja MD 08/18/23 16:17
Discharge Summary
Discharge Data
Date of Admission: 08/13/23
Date of Discharge: 08/18/23
Discharge Plan
-
Patient Disposition: Home (Routine Discharge)
Discharge Diagnosis/Procedures: Metastatic renal cell carcinoma
Condition: Good
Diet: As tolerated
Activity: As tolerated
Driving Restrictions: As prior to admission
Blood Work: BMP and HbA1c in 1 week
Referrals:
Kervin De León MD [Active] -
Santana Monteiro MD [Family Provider] -
Prescriptions:
Continued
rosuvastatin 20 MG tablet
20 mg PO QPM
acetaminophen 325 mg Tablet
650 mg PO Q6HPRN PRN (Reason: mild pain)
allopurinol 100 mg Tablet
200 mg PO DAILY
sodium bicarbonate 650 mg Tablet
650 mg PO TID
levothyroxine 50 mcg Tablet
50 mcg PO DAILY
aspirin 81 mg Tablet,Chewable
81 mg PO DAILY
everolimus (antineoplastic) 5 mg Tablet
5 mg PO .DAILY ON HOLD
Lenvima 12 mg/day (4 mg x 3) Capsule
12 mg PO .DAILY ON HOLD
potassium citrate 10 mEq (1,080 mg) Tablet Extended Release
10 meq PO TID
Held
nifedipine 30 mg Tablet Extended Release
30 mg PO .BID ON HOLD
Hold Instructions: Until after follow-up with PCP and nephrology.
hydralazine 50 mg Tablet
50 mg PO .DAILY ON HOLD
Hold Instructions: Until after follow-up with PCP and nephrology.
Discharge Orders:
Discharge Patient (As Directed); Ordered 08/18/23
Ordered By: Simon Vinson
Discharge Date and Time
Discharge Date/Time: 08/18/23 15:12
Print Language: PAKISTANI
== END 2023-08-18 15:12 | disposition home or self-care (01) | DRG 683 ==
LOC: 3 WEST ACU 18:09
PROVIDERS: Internal Medicine; Physician Assistant Medical; Student in an Organized Health Care Education/Training Program; ADMITTING PHYSICIAN Internal Medicine; CONSULT PHYSICIAN Internal Medicine Medical Oncology; EMERGENCY PHYSICIAN Emergency Medicine; FAMILY PHYSICIAN Internal Medicine
DX: N17.9 Acute kidney failure, unspecified (principal); C64.1 Malignant neoplasm of right kidney, except renal pelvis; I31.39 Other pericardial effusion (noninflammatory); C78.7 Secondary malignant neoplasm of liver and intrahepatic bile duct; R18.8 Other ascites; E87.20 Acidosis, unspecified; E87.1 Hypo-osmolality and hyponatremia; E87.5 Hyperkalemia; N18.32 Chronic kidney disease, stage 3b; E11.22 Type 2 diabetes mellitus with diabetic chronic kidney disease; E78.00 Pure hypercholesterolemia, unspecified; I12.9 Hypertensive chronic kidney disease with stage 1 through stage 4 chronic kidney disease, or unspecified chronic kidney disease; M10.9 Gout, unspecified; D64.9 Anemia, unspecified; E03.9 Hypothyroidism, unspecified; Z90.5 Acquired absence of kidney; Z79.82 Long term (current) use of aspirin; Z79.890 Hormone replacement therapy; Z79.84 Long term (current) use of oral hypoglycemic drugs
CPT/HCPCS: 74150; 76700; 80048; 80053; 81003; 81015; 82248; 82533; 82570; 82962; 83690; 84156; 84300; 85025; 86803; 93306; 93970; 96374; 97162; 97166; 99285

== ENCOUNTER → 2023-11-05 11:00 | Outpatient (REF) | payer OTHER, SELFPAY | LOC: RAD 11:00 | PROVIDERS: ATTENDING PHYSICIAN Surgery Vascular Surgery; FAMILY PHYSICIAN Internal Medicine; OTHER PHYSICIAN Internal Medicine; REFERRING PHYSICIAN Specialist | DX: Z01.818 Encounter for other preprocedural examination (principal) | CPT/HCPCS: 93985 ==

== ENCOUNTER 2023-11-12 09:21 | Day surgery (SDC) | payer OTHER, SELFPAY ==
[2023-11-12] VITALS (14 sets, daily range): BP systolic 116–126; BP diastolic 64–76; BMI 28.7
[2023-11-12 10:17] LABS: Hematocrit 30.9 % (39.0-52.0); Hemoglobin 9.6 g/dL (13.0-18.0); Mean Corp Hgb Conc. 31.1 g/dL (33.0-37.0); Mean Corpuscular Hgb 31.2 pg (27.0-31.0); Mean Corpuscular Volume 100.3 fL (80.0-94.0); Mean Platelet Volume 9.2 fL (7.4-10.4); Platelet Count 164 10^3/uL (130-400); Red Blood Cell Count 3.08 10^6/uL (4.70-6.10); Red Cell Dist. Width 15.1 % (11.5-14.5); White Blood Cell Count 4.9 10^3/uL (4.8-10.8)
[2023-11-12] MEDS: BACTROBAN NASAL 1 GRAM NASAL (10:22)
[2023-11-12] MEDS: PERIDEX 0.12% ORAL RINSE 15 ML PO (10:23)
[2023-11-12 10:25] LABS: Blood Urea Nitrogen 50 mg/dl (9-20); Calcium 8.7 mg/dl (8.4-10.2); Carbon Dioxide 33 mmol/L (22-30); Chloride 93 mmol/L (98-107); Estimated Creatinine Clearance 34 ml/min; Glucose 195 mg/dl (70-99); Potassium 3.9 mmol/L (3.5-5.1); Sodium 137 mmol/L (135-145); eGFR 30.36
--- NOTE | 2023-11-12 10:30 | W.SUR.PREOP ---
Pre-Operative Surgical Note
-
I have examined this patient prior to the performance of the scheduled procedure.
The patient's condition is unchanged from the time of the current History and
Physical and the patient is able to undergo the scheduled procedure.
[2023-11-12 10:33] LABS: INR 1.22; PT 15.5 Sec (11.4-14.6)
--- NOTE | 2023-11-12 11:58 | W.SUR.POST ---
Surgical Immediate Post Op
Note
Pre Op Diagnosis: ESRD
Post Op Diagnosis: ESRD
Procedure Performed: LUE radiocephalic AV fistula creation
Primary Surgeon: Mukesh
Secondary Surgeons: Jayden PETERS
Anesthesia: LMA
Estimated Blood Loss: 10cc
Fluids: See anethesia flow sheet
Drains/Shunts: none
Specimens/Cultures: None
Doppler/Duplex/Angio (Y/N): Y
Complications: none
Operative Findings: +thrill
[2023-11-12 13:07] LABS: Glucose - Point of Care 168 mg/dl (70-99)
--- NOTE | 2023-11-12 14:59 | OR.RPT ---
Operative Report
Operative Report
PROCEDURE DATE: 11/12/2023
Preoperative diagnosis: End-stage renal disease on hemodialysis
Postoperative diagnosis: Same
Procedure: Left upper extremity radiocephalic arteriovenous fistula creation
Surgeon: Mukesh
E Commerce Manager: DECLAN Carpenter, required for all aspects of procedure including assistance with traction/countertraction, following a suture line, assistance with closure.
Complications: None
Anesthesia: General
Indications for procedure:
End-stage renal disease on hemodialysis. Required more permanent access. Currently dialyzed via tunneled dialysis catheter. Risk/benefits/alternatives of fistula creation were discussed with the patient and his family. They understood all wish
to proceed.
Description of procedure:
Patient was identified brought to the operating room placed on the table in supine position. After the adequate administration of anesthesia and perioperative antibiotics he was prepped and draped in the standard surgical fashion. A standard
preoperative timeout was undertaken and everybody was in agreement the plan. A longitudinal incision was made distal forearm/wrist on the radial aspect. This was carried through skin subcutaneous tissue.
A small lateral subcutaneous flap was raised and the cephalic vein was identified. It was carefully dissected away from surrounding structures take great care to avoid any injury to the structures. Any branches were ligated between silk ties and
then divided. It was a very reasonable sized vein. The vein was fully mobilized out of its bed. Once I mobilized the suitable segment, I deepened my dissection in the medial aspect of the incision through the fascial layer. I identified the
radial artery. I carefully dissected away from surrounding structures take great care to avoid any injury to structures. I passed a vessel loop around it proximally and distally. This was double looped but not yet tightened.
Next, I ligated the cephalic vein distally in my field with a silk tie and a clip. I then transected it. I distended the vein under heparinized saline. It distended very well. Given the large size and good distention, I did not feel there is any
need to pass dilators as it was clearly over 3 mm in size. I marked the anterior surface of the vein under distention to avoid any kinking or twisting.
Next, I gave the patient 3000 units of intravenous heparin. I tightened my double looped Vesseloops on the artery proximally and distally. I made an arteriotomy with a Eddy blade and extended using a micro Marinelli scissor. I then spatulated the
cephalic vein and sewed an end to side anastomosis using a running 7-0 Prolene suture. It was a small artery, and a somewhat larger patulous vein. I backbled the artery and then completed and tied down my suture line. Next I released my proximal
vessel loop. Finally I released my outflow vessel loop. There was a reasonable thrill in the fistula. There was a good radial pulse at the wrist more distally. At this point I was very satisfied. I irrigated. I achieved and confirmed full
hemostasis. I then closed in layers using 3-0 Vicryl deep dermal layer followed by 4 Monocryl subcuticular stitch. Dermabond was applied.
== END 2023-11-12 14:45 | disposition home or self-care (01) ==
LOC: CATH 09:21
PROVIDERS: ATTENDING PHYSICIAN Surgery Vascular Surgery; FAMILY PHYSICIAN Internal Medicine; OTHER PHYSICIAN Specialist
DX: I12.0 Hypertensive chronic kidney disease with stage 5 chronic kidney disease or end stage renal disease (principal); E11.22 Type 2 diabetes mellitus with diabetic chronic kidney disease; N18.6 End stage renal disease; Z99.2 Dependence on renal dialysis; I45.10 Unspecified right bundle-branch block; E78.5 Hyperlipidemia, unspecified; Z79.82 Long term (current) use of aspirin
CPT/HCPCS: 36821; 80048; 82962; 85027; 85610; 85730; 86850; 86900; 86901; 93005

== ENCOUNTER → 2023-12-17 09:46 | Outpatient (REF) | payer OTHER, SELFPAY | LOC: RAD 09:46 | PROVIDERS: ATTENDING PHYSICIAN Physician Assistant; FAMILY PHYSICIAN Internal Medicine; REFERRING PHYSICIAN Specialist | DX: I77.0 Arteriovenous fistula, acquired (principal) | CPT/HCPCS: 93990 ==

== ENCOUNTER 2024-01-21 09:09 | Day surgery (SDC) | payer OTHER, SELFPAY ==
[2024-01-21] VITALS (12 sets, daily range): BP systolic 107–148; BP diastolic 73–93
[2024-01-21 09:30] LABS: Hematocrit 39.1 % (39.0-52.0); Hemoglobin 13.3 g/dL (13.0-18.0); Mean Corpuscular Hgb 32.7 pg (27.0-31.0); Mean Corpuscular Volume 96.1 fL (80.0-94.0); Mean Platelet Volume 9.6 fL (7.4-10.4); Platelet Count 123 10^3/uL (130-400); Red Blood Cell Count 4.07 10^6/uL (4.70-6.10); Red Cell Dist. Width 18.6 % (11.5-14.5); White Blood Cell Count 3.6 10^3/uL (4.8-10.8)
[2024-01-21 09:42] LABS: INR 1.06; PT 14.4 Sec (11.4-14.6)
[2024-01-21 10:06] LABS: Blood Urea Nitrogen 67 mg/dl (9-20); Carbon Dioxide 28 mmol/L (22-30); Chloride 98 mmol/L (98-107); Glucose 212 mg/dl (70-99); Potassium 3.5 mmol/L (3.5-5.1); Sodium 139 mmol/L (135-145); eGFR 28.67
[2024-01-21] MEDS: NOVOLOG vial 1 UNITS SC (10:36)
[2024-01-21] MEDS: NSS 500 IV (10:38)
--- NOTE | 2024-01-21 13:10 | W.SUR.POST ---
Surgical Immediate Post Op
Note
Pre Op Diagnosis: ESRD
Post Op Diagnosis: ESRD
Procedure Performed: Left upper extremity fistulogram with balloon angioplasty to preanastomotic vein
Primary Surgeon: Brian Mayorga MD
Secondary Surgeons: N/A
Anesthesia: MAC
Estimated Blood Loss: 2 ml
Fluids: See anesthesia flow sheet
Drains/Shunts: N/A
Specimens/Cultures: N/A
Doppler/Duplex/Angio (Y/N): Y
Complications: none
Operative Findings: +thrill post procedure
--- NOTE | 2024-01-21 13:53 | OR.RPT ---
Operative Report
Operative Report
PROCEDURE DATE: 01/21/2024
Preoperative diagnosis: End-stage renal disease on hemodialysis. Status post left upper extremity radiocephalic arteriovenous fistula creation with difficulty accessing fistula.
Postoperative diagnosis: Same
Procedure:
1. Duplex assisted cannulation of left forearm cephalic vein in a peripheral facing direction.
2. Left upper extremity fistulogram and central venogram.
3. Balloon angioplasty of perianastomotic stenosis with 3 mm and 3.5 mm angioplasty balloon.
4. Supervision and interpretation.
Surgeon: Mukesh
Manager Recruiting: None
Complications: None
Anesthesia: Local, sedation
Fluoroscopy:
4.8 min
5 mGy
1.79 Gy.cm2
Indications for procedure:
End-stage renal disease on hemodialysis. Left radiocephalic arteriovenous fistula created. Limited ability to access the fistula and difficulty maintaining dialysis. Potential perianastomotic stenosis noted on ultrasound.
Risk/benefits/alternatives of left upper extremity fistulogram fully discussed. Patient understood all wished to proceed.
Description of procedure:
Patient was identified, brought to the operating room. Placed on the table in the supine position. After the adequate administration of anesthesia, the patient was prepped and draped in the standard surgical fashion. A standard preoperative
timeout was undertaken and everybody was in agreement with the plan.
The left upper extremity forearm cephalic vein was punctured under direct duplex ultrasound guidance and a peripheral facing direction in the proximal forearm. This was done with a micropuncture kit. I then advanced a 5 [place] sheath over a 0.035
inch wire. Fistulogram demonstrated patent fistula in the vicinity of this sheath. There was some branching vein noted. However the main cephalic outflow vein appeared reasonable size. However I could not get contrast to reflux towards
anastomosis. I therefore then used a floppy angled hydrophilic wire and a glide catheter and was able to pass my wire and then catheter down towards the anastomotic region. I then was able to cannulate the radial artery just proximal to the
anastomosis and then advance my glide catheter across anastomosis into the proximal radial artery. Angiogram was performed. This demonstrated actually slightly aberrant anatomy. Distal radial artery appeared to be the radial artery, however it
appeared to branch off the main radial artery slightly more proximally when I did my fistulogram. Both this branch and the other branch filled the hand, but the other branch filled more of the palmar arch. This was slightly atypical bifurcation.
The artery which was anastomosed to the vein appeared to be a slightly smaller branch. And there appeared to be stenosis/disease at the very distal aspect of the artery and in the perianastomotic area. Therefore, I felt that it was worthwhile to
angioplasty that in order to enhance perfusion through the fistula. I therefore then exchanged for a 0.014 inch wire. I then used a 3 mm angioplasty balloon to angioplasty that stenotic area. Completion angiogram demonstrated good result, but
still slight residual stenosis. I therefore then used a 3.5 mm balloon to angioplasty the area again. Completion angiogram now demonstrated good result. At this point I was very satisfied. Remainder of the fistulogram and central venogram was
performed identifying no other stenoses. At this point I satisfied. The wires and catheters were withdrawn. A 4-0 Monocryl pursestring stitch was placed around the sheath entry site, and was tied down as the sheath was withdrawn. Manual pressure
was also applied to the puncture site. Hemostasis was fully achieved. The patient tolerated procedure well. He had a good thrill in the fistula upon completion.
== END 2024-01-21 15:11 | disposition home or self-care (01) ==
LOC: CATH 09:09
PROVIDERS: ATTENDING PHYSICIAN Surgery Vascular Surgery; FAMILY PHYSICIAN Internal Medicine
DX: T82.858D Stenosis of other vascular prosthetic devices, implants and grafts, subsequent encounter (principal); Y83.2 Surgical operation with anastomosis, bypass or graft as the cause of abnormal reaction of the patient, or of later complication, without mention of misadventure at the time of the procedure; Z79.82 Long term (current) use of aspirin; I12.0 Hypertensive chronic kidney disease with stage 5 chronic kidney disease or end stage renal disease; E11.22 Type 2 diabetes mellitus with diabetic chronic kidney disease; N18.6 End stage renal disease; Z99.2 Dependence on renal dialysis; Z79.85 Long-term (current) use of injectable non-insulin antidiabetic drugs
CPT/HCPCS: 36902; 80048; 85027; 85610; 85730; 86850; 86900; 86901; C1725; C1769; C1894; Q9967

== ENCOUNTER → 2024-03-29 09:23 | Outpatient (REF) | payer OTHER, SELFPAY ==
[2024-03-29 09:45] VITALS: BP 128/78; BP_SYST 82
== END ==
LOC: RADI 09:23
PROVIDERS: ATTENDING PHYSICIAN Internal Medicine
DX: Z49.01 Encounter for fitting and adjustment of extracorporeal dialysis catheter (principal); N18.6 End stage renal disease
CPT/HCPCS: 36589

== ENCOUNTER → 2024-08-09 06:49 | Outpatient (REF) | payer OTHER, SELFPAY | LOC: RAD 06:49 | PROVIDERS: ATTENDING PHYSICIAN Surgery Vascular Surgery; FAMILY PHYSICIAN Internal Medicine | DX: I77.0 Arteriovenous fistula, acquired (principal) | CPT/HCPCS: 93990 ==

== ENCOUNTER 2024-08-18 10:45 | Day surgery (SDC) | payer OTHER, SELFPAY ==
[2024-08-18] VITALS (7 sets, daily range): BP systolic 86–127; BP diastolic 64–79; BMI 24.7
[2024-08-18] MEDS: NSS 500 IV (11:00)
[2024-08-18 11:22] LABS: Glucose - Point of Care 105 mg/dl (70-99)
[2024-08-18 11:24] LABS: Hematocrit 37.2 % (39.0-52.0); Hemoglobin 11.7 g/dL (13.0-18.0); Mean Corp Hgb Conc. 31.5 g/dL (33.0-37.0); Mean Corpuscular Hgb 35.8 pg (27.0-31.0); Mean Corpuscular Volume 113.8 fL (80.0-94.0); Mean Platelet Volume 8.9 fL (7.4-10.4); Platelet Count 165 10^3/uL (130-400); Red Blood Cell Count 3.27 10^6/uL (4.70-6.10); Red Cell Dist. Width 17.2 % (11.5-14.5); White Blood Cell Count 4.9 10^3/uL (4.8-10.8)
[2024-08-18 11:43] LABS: INR 1.08; PT 14.5 Sec (11.4-14.6)
[2024-08-18 11:44] LABS: APTT 36.7 Sec (23.4-35.0)
[2024-08-18 12:09] LABS: Blood Urea Nitrogen 29 mg/dl (9-20); Calcium 8.5 mg/dl (8.4-10.2); Carbon Dioxide 30 mmol/L (22-30); Chloride 97 mmol/L (98-107); Estimated Creatinine Clearance 18 ml/min; Glucose 124 mg/dl (70-99); Potassium 4.4 mmol/L (3.5-5.1); Sodium 138 mmol/L (135-145); eGFR 13.49
--- NOTE | 2024-08-18 12:11 | PTCARENOTE ---
Carrie took over care of pt while Daisy had lunch. Pt was wiped down on left arm for pre op Fistuogram
--- NOTE | 2024-08-18 15:30 | OR.RPT ---
Operative Report
Operative Report
PROCEDURE DATE: 08/18/2024
Preoperative diagnosis:
1. End-stage renal disease on hemodialysis.
2. Poor flow rates left upper extremity radiocephalic AV fistula.
Postoperative diagnosis: Same
Procedure:
1. Duplex assisted cannulation of left upper extremity fistula in both peripheral and central facing directions.
2. Left upper extremity fistulogram.
3. Balloon angioplasty of perianastomotic stenosis with 3 mm and 4 mm angioplasty balloons.
4. Balloon angioplasty of long segment outflow vein with 6 mm balloon.
5. Supervision interpretation.
Surgeon: Mukesh
Forming And Assembling Supervisor: None
Complications: None
Anesthesia: Local, sedation
Fluoroscopy:
6.9 min
5 mGy
1.39 gy.cm2
Indications for procedure:
As above end-stage renal disease on hemodialysis. Poor flow rates. Was referred for fistulogram. Risk/benefits/alternatives also discussed. Patient understood all wished to proceed.
Description of procedure:
Patient was identified, brought to the operating room. Placed on the table in the supine position. After the adequate administration of anesthesia, the patient was prepped and draped in the standard surgical fashion. A standard preoperative
timeout was undertaken and everybody was in agreement with the plan.
The outflow vein of the left upper extremity radiocephalic fistula was punctured in the proximal volar aspect of the forearm in a peripheral facing direction using a micropuncture kit under direct duplex ultrasound guidance. A 5 [place] sheath was
advanced over a 0.035 inch wire. Fistulogram demonstrated patent fistula around the sheath entry site. However around the sheath entry site there did appear to be stenosis, although it was unclear if this was just vasospasm as there did not appear
to be any stenosis on ultrasound. I now used a flopping of hydrophilic wire and a glide catheter. I advanced a glide catheter and obtained fistulogram again. This demonstrated patent majority of the outflow vein immediately distally anastomosis
although the anastomosis was not initially seen on the first images. There was brisk filling also into a sidebranch as was seen on prior fistulogram that then drained towards the antecubital fossa. Now using a flap and hydrophilic wire with some
difficulty is finally able to get a wire into the proximal radial artery. I then advanced the catheter and obtain full fistulogram. This demonstrated some mild recurrent stenosis at the anastomosis. It appeared more likely due to plaque at the
artery. Regardless I now exchanged for a 0.018 inch V18 wire. I then performed balloon angioplasty with a 3 mm balloon followed sequentially by a 4 mm angioplasty balloon. Completion angiogram demonstrated good result with no residual stenosis.
At this point I was satisfied with that. However as I performed completion angiography/fistulogram, I noted that there was very little filling in the hughes vein. There appeared also to be almost a gap in filling just after the takeoff of the
other vein branch. In addition beyond the sheath there was no filling. I did not know whether the sheath was somewhat occlusive and that was resulting in this issue, or whether there was thrombus or stenosis that was latent and not seen earlier.
Regardless at this point I punctured the fistula in a central facing direction at the level of the wrist using a micropuncture kit under direct duplex ultrasound guidance. I then advanced a 5 [place]an sheath over a 0.035 inch wire facing this
direction. Angiogram was performed. Similar findings were noted. I then used a long 6 mm angioplasty balloon to angioplasty the entirety of that segment of vein. This resulted in significant improvement in the outflow. There was some webbing of
in general of the vein or a chordae unlike appearance. However there is no significant stenosis through the majority of it. However there is 1 small segment just beyond the alternate draining pathway again where there is still little residual
stenosis. I therefore then used a 6 mm focal shorter balloon there. Completion angiogram after that demonstrated excellent result now with brisk flow into the hughes system. I debated coil embolism of the stealing branch. However my concern was
that if there should be recurrent vasospasm or issue in the main outflow vein at least the stealing branch would keep the fistula open. Therefore I elected not to do that. At this point I wires and catheters were all withdrawn. 4-0 Monocryl
pursestring stitches were placed around the sheath entry sites, and these were tied down as the sheaths were withdrawn. Manual pressure was also applied to the puncture sites. Hemostasis is achieved at both sites. There is a good thrill in the
fistula upon completion.
The patient tolerated procedure well. He was transported to recovery room in stable condition.
== END 2024-08-18 15:30 | disposition home or self-care (01) ==
LOC: CATH 10:45
PROVIDERS: ATTENDING PHYSICIAN Surgery Vascular Surgery; PRIMARYCARE PHYSICIAN Internal Medicine
DX: T82.858D Stenosis of other vascular prosthetic devices, implants and grafts, subsequent encounter (principal); I12.0 Hypertensive chronic kidney disease with stage 5 chronic kidney disease or end stage renal disease; E11.22 Type 2 diabetes mellitus with diabetic chronic kidney disease; N18.6 End stage renal disease; Z99.2 Dependence on renal dialysis; Z79.85 Long-term (current) use of injectable non-insulin antidiabetic drugs; Z79.899 Other long term (current) drug therapy; I45.2 Bifascicular block
CPT/HCPCS: 36902; 80048; 82962; 85027; 85610; 85730; 86850; 86900; 86901; 93005; C1725; C1769; C1894; Q9967